=== PATIENT | female | born 1970 | race Two or more races ===

== ENCOUNTER 2016-08-22 08:45 | Emergency (ER) | payer SELFPAY ==
[~2016-08-22] VITALS: Ht 162.6 cm; Wt 49.9 kg
[2016-08-22 09:31] LABS: HEMATOCRIT 41.1 % (36.0-46.0); MCHC 32.8 G/DL (30.0-36.0); MCV 91.3 FL (83-99); RBC DIS.WIDTH-CV 12.9 % (11.8-14.6); RBC DIS.WIDTH-SD 43.7 % (39-53); WHITE BLOOD COUNT 5.8 K/uL (4.1-10.2)
[2016-08-22 09:47] LABS: ADD MIUA? YES; BILIRUBIN NEGATIVE; BLOOD MODERATE; COLOR YELLOW ((YELLOW)); GLUCOSE (STRIP) NEGATIVE; KETONES 5; LEUKOCYTES NEGATIVE; NITRITE NEGATIVE; PROTEIN (STRIP) 30; SPECIFIC GRAVITY 1.023 (1.000-1.030); UROBILINOGEN 0.2 MG/DL (0.2-1.0)
[2016-08-22 09:55] LABS: CHLORIDE 104 mEq/L (99-109); POTASSIUM 4.1 mEq/L (3.7-5.4); SODIUM 136 mEq/L (136-147)
[2016-08-22 09:56] LABS: BACTERIA 1+ /HPF; EPITHELIAL CELLS 1+ /HPF; MUCUS 1+ /LPF; WHITE BLOOD CELLS 0-5 /HPF (0-5)
[2016-08-22 09:57] LABS: GLUCOSE 86 mg/dL (70-99)
[2016-08-22 09:58] LABS: ANION GAP 8 MEQ/L (2-14)
[2016-08-22 09:59] LABS: TOTAL BILIRUBIN 2.4 mg/dL (0.0-1.0)
[2016-08-22 10:00] LABS: ALKALINE PHOSPHATASE 63 IU/L (3-129)
[2016-08-22 10:01] LABS: GFR ESTIMATE (CALCULATED) > 59 mL/min/
[2016-08-22 10:02] LABS: UREA NITROGEN (BUN) 11 mg/dL (9-23)
[2016-08-22 10:04] LABS: LIPASE 22 U/L (1.0-51.0)
[2016-08-22 10:11] LABS: QUANTITATIVE HCG < 4.0 MIU/ML
[2016-08-22 10:18] LABS: MEAN PLAT.VOLUME 11.5 uM^3 (9.5-12.4); PLATELET COUNT 180 K/uL (156-360)
[2016-08-22] MEDS ORDERED: BENTYL20 MG PO (12:34)
[2016-08-22] MEDS ORDERED: NAPROSYN500 MG PO (12:34)
[2016-08-22] MEDS ORDERED: ZOFRAN ODT4 MG PO (12:34)
[2016-08-22 12:58] VITALS: BP 92/61
== END 2016-08-22 13:02 | disposition home or self-care (01) ==
LOC: EME 08:45
PROVIDERS: Nurse Practitioner Family
DX: R10.9 Unspecified abdominal pain (principal); M54.5 Low back pain; R31.9 Hematuria, unspecified; R11.0 Nausea
CPT/HCPCS: 74176; 76705; 80053; 81003; 83690; 84702; 85027; 87086; 99281; 99285

== ENCOUNTER 2017-01-13 09:12 | Observation (INO) | payer OTHER ==
[~2017-01-13] VITALS: Ht 165.1 cm; Wt 65.0 kg
[~2017-01-13 09:12] MED LIST: BENTYL20 MG PO; NAPROSYN500 MG PO; ZOFRAN ODT4 MG PO
[2017-01-13 10:09] LABS: HEMATOCRIT 37.1 % (36.0-46.0); MCH 30.2 PG (29.0-34.0); MCHC 32.9 G/DL (30.0-36.0); MCV 91.8 FL (83-99); MEAN PLAT.VOLUME 10.9 uM^3 (9.5-12.4); PLATELET COUNT 226 K/uL (156-360); RBC DIS.WIDTH-CV 12.5 % (11.8-14.6); RBC DIS.WIDTH-SD 42.1 % (39-53); RED BLOOD COUNT 4.04 M/uL (3.80-5.20); WHITE BLOOD COUNT 4.5 K/uL (4.1-10.2)
[2017-01-13 10:22] LABS: CHLORIDE 107 mEq/L (99-109); POTASSIUM 4.1 mEq/L (3.7-5.4); SODIUM 141 mEq/L (136-147)
[2017-01-13 10:24] LABS: GLUCOSE 87 mg/dL (70-99)
[2017-01-13 10:26] LABS: ANION GAP 7 MEQ/L (2-14); TOTAL BILIRUBIN 1.3 mg/dL (0.0-1.0)
[2017-01-13 10:28] LABS: ALKALINE PHOSPHATASE 58 IU/L (3-129); GFR ESTIMATE (CALCULATED) > 59 mL/min/
[2017-01-13 10:29] LABS: UREA NITROGEN (BUN) 12 mg/dL (9-23)
[2017-01-13 10:31] LABS: LIPASE 19 U/L (1.0-51.0)
[2017-01-13 10:33] LABS: TROP-I INTERPRETATION NEGATIVE; TROPONIN-I < 0.01 ng/mL (0.0-0.30)
[2017-01-13 10:37] LABS: QUANTITATIVE HCG < 4.0 MIU/ML
[2017-01-13] MEDS ORDERED: PROTONIX40 MG PO (13:55)
[2017-01-13 14:30] VITALS: BP 101/71
== END 2017-01-13 13:30 | disposition home or self-care (01) ==
LOC: EME 09:12 → ENRESERV 12:22 → CANRESERV 12:30 → EDOF 12:43
PROVIDERS: Emergency Medicine
DX: R07.9 Chest pain, unspecified (principal); Z82.49 Family history of ischemic heart disease and other diseases of the circulatory system; R51 Headache; R20.0 Anesthesia of skin; R14.0 Abdominal distension (gaseous); R53.1 Weakness; R68.83 Chills (without fever); Z80.42 Family history of malignant neoplasm of prostate
CPT/HCPCS: 71010; 74176; 80053; 83690; 84484; 84702; 85027; 93005; 99281; 99285; G0378; S0028

== ENCOUNTER 2017-06-12 18:06 | Emergency (ER) | payer OTHER ==
[~2017-06-12] VITALS: Ht 162.6 cm; Wt 58.0 kg
[~2017-06-12 18:06] MED LIST changes: +PROTONIX40 MG PO
[2017-06-12 18:48] LABS: APPEARANCE CLEAR ((CLEAR)); BILIRUBIN NEGATIVE; BLOOD MODERATE; COLOR YELLOW ((YELLOW)); GLUCOSE (STRIP) NEGATIVE; KETONES NEGATIVE; LEUKOCYTES NEGATIVE; NITRITE NEGATIVE; PROTEIN (STRIP) NEGATIVE; SPECIFIC GRAVITY 1.012 (1.000-1.030); UROBILINOGEN 0.2 MG/DL (0.2-1.0)
[2017-06-12 18:52] LABS: BACTERIA NONE SEEN /HPF; EPITHELIAL CELLS RARE /HPF; MUCUS TRACE /LPF; UCUL ADDED? NO; WHITE BLOOD CELLS 0-5 /HPF (0-5)
[2017-06-12 19:00] LABS: HEMATOCRIT 38.2 % (36.0-46.0); HEMOGLOBIN 12.7 G/DL (11.9-15.5); MCH 30.9 PG (29.0-34.0); MCHC 33.2 G/DL (30.0-36.0); MCV 92.9 FL (83-99); PLATELET COUNT 246 K/uL (156-360); RBC DIS.WIDTH-CV 12.6 % (11.8-14.6); RBC DIS.WIDTH-SD 43.6 % (39-53); RED BLOOD COUNT 4.11 M/uL (3.80-5.20); WHITE BLOOD COUNT 7.6 K/uL (4.1-10.2)
[2017-06-12 19:14] LABS: ALBUMIN 4.1 g/dL (3.2-4.8); CHLORIDE 108 mEq/L (99-109); SODIUM 139 mEq/L (136-147)
[2017-06-12 19:16] LABS: GLUCOSE 94 mg/dL (70-99); TOTAL PROTEIN 6.8 g/dL (6.4-8.3)
[2017-06-12 19:18] LABS: TOTAL BILIRUBIN 0.7 mg/dL (0.0-1.0)
[2017-06-12 19:19] LABS: ALKALINE PHOSPHATASE 66 IU/L (3-129)
[2017-06-12 19:20] LABS: CREATININE 0.8 mg/dL (0.6-1.3); GFR ESTIMATE (CALCULATED) > 59 mL/min/
[2017-06-12 19:21] LABS: AST (GOT) 17 IU/L (2-34); UREA NITROGEN (BUN) 12 mg/dL (9-23)
[2017-06-12 19:23] LABS: ALT (GPT) 15 IU/L (3-49)
[2017-06-12 19:28] LABS: QUANTITATIVE HCG < 4.0 MIU/ML
[2017-06-12 23:57] VITALS: BP 100/64
== END 2017-06-12 23:57 | disposition home or self-care (01) ==
LOC: EME 18:06
DX: R10.9 Unspecified abdominal pain (principal)
CPT/HCPCS: 74176; 80053; 81003; 84702; 85027; 93005; 99281; 99284; J1885; J2270; J2405